=== PATIENT | female | born 1970 | race Caucasian/White ===

== ENCOUNTER 2019-09-18 21:34 | Emergency (ER) | payer OTHER ==
[2019-09-18] MEDS ORDERED: NORMAL SALINE 1000 ML 1,000 ML IV ONE (23:09)
[2019-09-18] MEDS ORDERED: FAMOTIDINE INJ/PF 20 MG/2 ML SDV IV ONE (23:10)
[2019-09-18] MEDS ORDERED: DIPHENHYDRAMINE HCL 50 MG/ML VIAL IV ONE (23:10)
--- NOTE | 2019-09-18 23:12 | ER Document Report ---
ED Medical Screen (RME) - Related Data Home Medications: Bactrim topical. Bactrim PO <ASHLEIGHSAHRAJACINTO M - Last Filed: 09/18/19 23:09> <BRAEDEN MARTÍNEZ - Last Filed: 09/19/19 01:22> - General Chief Complaint: Flu Symptoms Stated Complaint: FLU SYMPTOMS Time Seen by Provider: 09/18/19 23:01 Notes: Patient is a 49-year-old female who presents to the emergency department with a chief complaint of a rash. She started to have a rash 2 days ago. She was also diagnosed with influenza 2 days ago. She has been treated with Bactrim, currently on day 6 for a skin infection. Exam: Rash noted to entire body. I have greeted and performed a rapid initial assessment of this patient. A comprehensive ED assessment and evaluation of the patient, analysis of test results and completion of medical decision making process will be conducted by an additional ED providers. (JACINTO SOTELO) - Related Data Allergies/Adverse Reactions: amoxicillin Allergy (Verified 09/18/19 22:16) Shortness of Breath aspirin Allergy (Verified 09/18/19 22:16) Shortness of Breath Cephalosporins Allergy (Verified 09/19/19 00:14) hives, swelling, difficulty breathing ibuprofen Allergy (Verified 09/18/19 22:16) Shortness of Breath Penicillins Allergy (Verified 09/18/19 22:16) Shortness of Breath sunflower oil Allergy (Verified 09/18/19 22:16) Anaphylaxis tree nut Allergy (Verified 09/18/19 22:16) Anaphylaxis Physical Exam - Vital signs Vitals: Temp Pulse Resp BP Pulse Ox 100.0 F 98 16 114/61 99 09/18/19 21:53 09/18/19 21:53 09/18/19 21:53 09/18/19 21:53 09/18/19 21:53 Course - Laboratory Result Diagrams: 09/18/19 22:29 09/18/19 22:29 <BRAEDEN MARTÍNEZ - Last Filed: 09/19/19 01:22> - Vital Signs Vital signs: Temp Pulse Resp BP Pulse Ox 100.0 F 98 16 114/61 99 09/18/19 21:53 09/18/19 21:53 09/18/19 21:53 09/18/19 21:53 09/18/19 21:53 - Laboratory Laboratory results interpreted by me: 09/18/19 09/18/19 22:29 22:29 WBC 3.0 L RBC 3.65 L Hgb 11.3 L Hct 32.5 L Plt Count 90 L Seg Neuts % (Manual) 79 H Band Neutrophils % 6 H Monocytes % (Manual) 0 L Abs Lymphs (Manual) 0.4 L Abs Monocytes (Manual) 0.0 L Sodium 131.4 L Chloride 93 L Calcium 8.1 L AST 100 H Alkaline Phosphatase 135 H Albumin 3.2 L
[2019-09-18 23:37] LABS: HEMATOCRIT 32.5 % (36.0-47.0); HEMOGLOBIN 11.3 g/dL (12.0-15.5); MEAN CORPUSCULAR HEMOGLOBIN 30.9 pg (27.0-33.4); MEAN CORPUSCULAR HGB CONC 34.7 g/dL (32.0-36.0); MEAN CORPUSCULAR VOLUME 89 fl (80-97); RED BLOOD COUNT 3.65 10^6/uL (3.72-5.28); RED CELL DISTRIBUTION WIDTH 13.7 % (11.5-14.0)
--- NOTE | 2019-09-18 23:53 | RADIOLOGY REPORT (SQ) ---
EXAM DESCRIPTION: XR CHEST 1 VIEW COMPLETED DATE/TME: 09/18/2019 23:07 CLINICAL HISTORY: 49 years, Female, rash; fever COMPARISON: None. NUMBER OF VIEWS: 1 TECHNIQUE: Portable chest LIMITATIONS: None. FINDINGS: The heart size is normal. Lungs are clear. No pneumothorax IMPRESSION: No acute cardiopulmonary process copyright 2010 [employer]- All Rights Reserved
[2019-09-18 23:58] LABS: ALBUMIN 3.2 g/dL (3.5-5.0); ALKALINE PHOSPHATASE 135 U/L (38-126); ANION GAP 11 (5-19); ASPARTATE AMINO TRANSFERASE 100 U/L (14-36); BILIRUBIN,DIRECT 0.4 mg/dL (0.0-0.4); BILIRUBIN,TOTAL 0.5 mg/dL (0.2-1.3); BLOOD UREA NITROGEN 12 mg/dL (7-20); CALCIUM 8.1 mg/dL (8.4-10.2); CARBON DIOXIDE 27 mmol/L (22-30); CHLORIDE 93 mmol/L (98-107); GLUCOSE 100 mg/dL (75-110); POTASSIUM 4.2 mmol/L (3.6-5.0); TOTAL PROTEIN 6.3 g/dL (6.3-8.2)
[2019-09-18 23:59] LABS: PLATELET COUNT 90 10^3/uL (150-450)
[2019-09-19 00:12] LABS: ABSOLUTE LYMPHOCYTES# (MANUAL) 0.4 10^3/uL (0.5-4.7); BAND NEUTROPHILS % (MANUAL) 6 % (3-5); BASOPHILS % (MANUAL) 0 % (0-2); EOSINOPHILS % (MANUAL) 1 % (0-6); LYMPHOCYTES % (MANUAL) 14 % (13-45); MONOCYTES % (MANUAL) 0 % (3-13); SEGMENTED NEUTROPHILS % (MAN) 79 % (42-78); TOTAL CELLS COUNTED 100
[2019-09-19 00:13] LABS: PLATELET COMMENT DECREASED; RBC MORPHOLOGY COMMENT NORMO-CYTIC/CHROMIC
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
[2019-09-19] MEDS ORDERED: METHYLPREDNISOLONE INJ 125 MG/2 ML SDV IV ONE (01:12)
[2019-09-19] MEDS ORDERED: ONDANSETRON HCL INJ/PF 4 MG/2 ML SDV IV ONE ×2 (01:13→02:51)
[2019-09-19] MEDS ORDERED: DIPH/PERTUSS(ACELL)/TETANUS VAC/PF 0.5 ML SYR (>=10YO) IM ONE (01:13)
[2019-09-19] MEDS ORDERED: NORMAL SALINE 1000 ML 1,000 ML IV ONE (01:13)
[2019-09-19] MEDS ORDERED: MECLIZINE HCL 25 MG TABLET PO ONE (02:51)
[2019-09-19 02:56] LABS: INTERNATIONAL RATION (INR) 1.06; PROTHROMBIN TIME 13.8 SEC (11.4-15.4)
--- NOTE | 2019-09-19 03:00 | RADIOLOGY REPORT (SQ) ---
EXAM DESCRIPTION: CT ABDOMEN PELVIS WITH IV CONTRAST COMPLETED DATE/TME: 09/19/2019 01:25 CLINICAL HISTORY: 49 years, Female, Epigastric pain COMPARISON: None. TECHNIQUE: 352 Images stored on PACS. All CT scanners at this facility use dose modulation, iterative reconstruction, and/or weight based dosing when appropriate to reduce radiation dose to as low as reasonably achievable (ALARA). [facility]: Dose Right [facility]: CareDose [facility]: Dose Right [facility]: Teradose 4D [facility]: [employer] LIMITATIONS: None. FINDINGS: The lung bases are unremarkable. Osseous structures are grossly intact. Fatty infiltrative change to the liver. The spleen, adrenal glands, pancreas, kidneys are unremarkable. Note is made of a heterogeneously enhancing area in the right hepatic lobe measuring 1.8 x 1.5 cm likely reflecting hemangioma. The gallbladder is present. Question small amount of pericholecystic fluid or gallbladder wall edema. Large amount of stool in the colon. No free air. Normal appendix. Small amount of free fluid in the pelvis. IMPRESSION: Small amount of nonspecific free fluid in the pelvis. Correlate with menstrual history. Fatty infiltrative change to the liver. Probable hemangioma in the right hepatic lobe. Question small pericholecystic fluid and/or gallbladder wall edema. Large amount of stool in the colon TECHNICAL DOCUMENTATION: Quality ID # [id number]: Final reports with documentation of one or more dose reduction techniques (e.g., Automated exposure control, adjustment of the mA and/or kV according to patient size, use of iterative reconstruction technique) copyright 2011 [employer]- All Rights Reserved
[2019-09-19 03:54] LABS: APPEARANCE,URINE SLIGHTLY-CLOUDY; BILIRUBIN,URINE NEGATIVE (NEGATIVE); COLOR,URINE AMBER; GLUCOSE, URINE NEGATIVE (NEGATIVE); KETONES,URINE 20 mg/dL (NEGATIVE); LEUKOCYTE ESTERASE,URINE NEGATIVE (NEGATIVE); NITRITE,URINE NEGATIVE (NEGATIVE); PROTEIN,URINE 100 mg/dL (NEGATIVE); URINE SPECIFIC GRAVITY 1.036
[2019-09-19] MEDS ORDERED: VANCOMYCIN HCL INJ 1000 MG VIAL IV ONE (04:06)
[2019-09-19] MEDS ORDERED: LEVOFLOXACIN 750 MG/D5W RTU 750 MG/150 ML RTUPB IV ONE (05:00)
--- NOTE | 2019-09-19 05:50 | RADIOLOGY REPORT (SQ) ---
EXAM DESCRIPTION: US ABDOMEN LIMITED COMPLETED DATE/TME: 09/19/2019 03:41 CLINICAL HISTORY: 49 years, Female, Abdominal pain COMPARISON: CT today's date TECHNIQUE: Limited right upper quadrant ultrasound LIMITATIONS: None. FINDINGS: There is a 11 x 11 mm echogenic focus in the liver, likely hemangioma. This was also seen on CT. Fatty infiltrative change to the liver.. The pancreas, abdominal aorta, inferior vena cava, right kidney are unremarkable. No ascites. No gallstones. Trace pericholecystic fluid. No gallbladder wall thickening. CBD measures 1.5 mm. IMPRESSION: Fatty infiltrative change to the liver. Echogenic focus in the liver consistent with hemangioma. Trace of pericholecystic fluid. No gallstones copyright 2010 [employer]- All Rights Reserved
--- NOTE | 2019-09-19 08:00 | EKG REPORT ---
SEVERITY:- ABNORMAL ECG - SINUS TACHYCARDIA BORDERLINE RIGHT AXIS DEVIATION BORDERLINE R WAVE PROGRESSION, ANTERIOR LEADS BORDERLINE T ABNORMALITIES, ANT-LAT LEADS : Confirmed by: Grant Sexton MD 19-Sep-2019 08:00:11
--- NOTE | 2019-09-19 08:01 | EKG REPORT ---
SEVERITY:- BORDERLINE ECG - SINUS RHYTHM BORDERLINE RIGHT AXIS DEVIATION BORDERLINE T ABNORMALITIES, ANT-LAT LEADS : Confirmed by: Grant Sexton MD 19-Sep-2019 08:00:48
--- NOTE | 2019-09-19 09:37 | RADIOLOGY REPORT (SQ) ---
EXAM DESCRIPTION: NM LUNG VENT/PERF SCAN COMPLETED DATE/TIME: 09/19/2019 9:18 am REASON FOR STUDY: Chest pain and low O2 COMPARISON: Chest x-ray dated 09/18/2019. RADIONUCLIDE AND DOSE: 5.06 millicuries TC-99m MAA Intravenous 32.5 millicuries TC-99m DTPA Inhaled aerosol TECHNIQUE: Two views of the lungs acquired post ventilation of DTPA aerosol. Eight views of the eli gs acquired following injection of MAA. LIMITATIONS: None. FINDINGS: VENTILATION: Symmetric and homogeneous distribution of DTPA aerosol during ventilatory pha se. No significant areas of photopenia. PERFUSION: Perfusion images with normal homogenous activity and no wedge-shaped or segmental defects. No ventilation-perfusion mismatches. OTHER: No other significant finding. IMPRESSION: NORMAL VENTILATION-PERFUSION LUNG SCAN. NEGATIVE FOR PULMONARY EMBOLI. TECHNICAL DOCUMENTATION: JOB ID: [id number] [employer]- All Rights Reserved Reading location - IP/workstation name: [email or web address]
[2019-09-19 10:30] LABS: A TYPE INFLUENZA AG NEGATIVE (NEGATIVE); B INFLUENZA AG NEGATIVE (NEGATIVE)
[2019-09-19 12:11] VITALS: BP 91/60
== END 2019-09-19 12:16 | disposition home or self-care (01) ==
LOC: ER 21:34
DX: T78.40XA Allergy, unspecified, initial encounter (principal); R21 Rash and other nonspecific skin eruption; B34.9 Viral infection, unspecified; R07.9 Chest pain, unspecified; R42 Dizziness and giddiness; R10.13 Epigastric pain; R06.02 Shortness of breath; R11.2 Nausea with vomiting, unspecified; Z23 Encounter for immunization; Z88.0 Allergy status to penicillin; Z88.6 Allergy status to analgesic agent
CPT/HCPCS: 93005; 96376; 99284; 96361; 90471; 96375; 96365; 96366; 36415; 87040; 87070; 87880; 83690; 85025; 85610; 86308; 80053; 81001; 84484; 87804; 71045; 76705; 78582; 74177; 90715; 93010; A9540; A9567; J1200; J2930; J2405; J7030; J3370; S0028; J1956; Q9969